=== PATIENT | male | born 1960 | race Caucasian/White ===

== ENCOUNTER 2020-05-20 10:39 | Outpatient (REF) | payer OTHER, SELFPAY ==
[2020-05-20 14:50] LABS: Alanine Aminotransferase 21 U/L (0-40); Anion Gap 13 (12-20); Aspartate Amino Transferase 18 U/L (5-37); Blood Urea Nitrogen 20 mg/dL (9-16); Calcium 9.3 mg/dL (8.4-10.2); Carbon Dioxide 28 mmol/L (22-29); Chloride 107 mmol/L (96-108); Cholesterol 186 mg/dL; Estimated Glomerular Filt Rate > 60; Glucose Fasting 86 mg/dL (60-99); HDL Cholesterol 40 mg/dL; LDL Cholesterol Calculated 116 mg/dl; Potassium 4.6 mmol/l (3.3-5.1); Sodium 143 mmol/L (135-145); Triglycerides 153 mg/dL
== END 2020-05-20 10:40 | disposition home or self-care (01) ==
LOC: HO.HMGCLDS 10:39
PROVIDERS: PCP Internal Medicine; Visit Provider Internal Medicine
DX: I25.10 Atherosclerotic heart disease of native coronary artery without angina pectoris (principal); I10 Essential (primary) hypertension; E78.2 Mixed hyperlipidemia
CPT/HCPCS: 36415; 80048; 80061; 84450; 84460

== ENCOUNTER 2020-05-21 08:50 | Outpatient (REF) | payer OTHER, SELFPAY ==
--- NOTE | 2020-05-21 08:30 | CA_ITS ---
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 The visually estimated ejection fraction is between 65-70%. - There is severe septal and severe basal asymmetric hypertrophy. - There is mild aortic valve stenosis. There is mild aortic valve regurgitation. - There is mild dilatation of the ascending aorta measuring 4.20 cm. Findings Left Ventricle Normal left ventricular cavity size. There is moderately increased left ventricular wall thickness. The left ventricular systolic function is normal. The visually estimated ejection fraction is between 65-70%. There is no evidence of regional wall motion abnormalities. Diastolic function is normal for age. There is severe septal and severe basal asymmetric hypertrophy. Right Ventricle Normal right ventricular cavity size and systolic function. Atria The left atrium is mildly dilated. The right atrium is normal in size. Aortic Valve The aortic valve was not well visualized. There is mild calcification of the aortic valve. There is mild aortic valve stenosis. The peak aortic velocity is 2.50 m/s with a calculated peak gradient of 25 mmHg. The mean gradient is 14 mmHg. The aortic valve area is 2.58 cm2. There is mild aortic valve regurgitation. Mitral Valve The mitral valve appears normal. There is trace mitral valve regurgitation. There is no mitral valve stenosis. Pulmonic Valve The pulmonic valve was not well visualized. Tricuspid Valve There is mild tricuspid valve regurgitation. The pulmonary artery systolic pressure is normal. Great Vessels There is mild dilatation of the ascending aorta measuring 4.20 cm. Venous The inferior vena cava is normal in size and collapses greater than 50% with inspiration. Pericardium/Pleural There is no evidence of pericardial effusion. Prior Study Comparison No significant change compared to prior study dated: 12/29/2018. Measurements 2D Linear Measurements IVSd: 1.70 0.6-0.9/0.6-1.0 cm LVIDd: 4.06 3.9-5.3/4.2-5.9 cm LVIDd Index: 1.62 2.4-3.2/2.2-3.1 cm/m2 LVIDs: 2.72 2.0-3.6 cm LVPWd: 1.52 0.7-1.1 cm Ao Root: 3.50 2.1-3.5 cm LA Diam: 4.50 2.7-3.8/3.0-4.0 cm LAIDs Index: 1.79 1.5-2.3 cm/m2 LV Mass: 331.66 67-162/88-224 g LV Mass Index: 132.14 43-95/49-115 g/m2 LVOT Diam: 2.20 3.0+(-)1.3 cm 2D Systolic Function EF 4C: 62.20 >55% EF 2C: 41.80 >55% Mitral Valve MV Pk E: 0.48 MV PK A: 0.49 MV Decel Time: 317.00 E/A: 1.00 E'Lateral: 8.61 E'Medial: 6.77 E/E' Med: 7.10 E/E' Lat: 5.60 PHT: 93.00 MVA PHT: 2.37 Decel Monona: 1.52 Aortic Valve AoV Pk Mitul: 2.50 AoV Mn Mitul: 1.77 AoV VTI: 0.57 AoV Pk Grad: 25.00 Aov Mn Grad: 14.00 CHERRI Cont.VTI: 2.58 LVOT LVOT Pk Mitul: 1.59 LVOT Mn Mitul: 1.17 LVOT VTI: 0.39 LVOT Pk Grad: 10.00 LVOT Mn Grad: 6.00 LVOT Diam: 2.20 LVOT Area: 3.80 Diastolic Function MV Pk E: 0.48 MV Pk A: 0.49 E/A: 1.00 E'Medial: 6.77 E/E' Med: 7.10 E' Laterial: 8.61 E/E' Lat: 5.60 Tricuspid Valve TR Pk Mitul: 2.29 TR Pk Grad: 21.00 RA Press: 3.00 RVSP: 24.00 Great Vessels Aorta Ao Root-2D: 3.50 2.0-3.7 cm Ao Asc: 4.20 2.1-3.4 cm Pulmonary Valve PV Pk Mitul: 1.18 Peak PV Grad: 6.00 Updated in Other Vendor System with Status of Final Myke Thakkar MD electronically signed on 05/22/2020 5:36:44 PM with status of Final
== END 2020-05-21 08:51 | disposition home or self-care (01) ==
LOC: HO.CT 08:50
PROVIDERS: PCP Internal Medicine; Visit Provider Internal Medicine Cardiovascular Disease
DX: I25.10 Atherosclerotic heart disease of native coronary artery without angina pectoris (principal); I35.0 Nonrheumatic aortic (valve) stenosis; I71.2 Thoracic aortic aneurysm, without rupture
CPT/HCPCS: 93306

== ENCOUNTER → 2020-06-27 12:47 | Outpatient (BNVA) | payer OTHER, SELFPAY | PROVIDERS: PCP Internal Medicine; Visit Provider Internal Medicine Cardiovascular Disease | DX: I35.0 Nonrheumatic aortic (valve) stenosis (principal); I71.2 Thoracic aortic aneurysm, without rupture; I25.10 Atherosclerotic heart disease of native coronary artery without angina pectoris; Z79.82 Long term (current) use of aspirin; Z79.899 Other long term (current) drug therapy | CPT/HCPCS: 99212 ==

== ENCOUNTER → 2021-08-12 14:43 | Outpatient (REF) | payer OTHER, SELFPAY ==
--- NOTE | 2021-08-12 14:53 | CA_ITS ---
Transthoracic Echocardiogram Patient (Last, First, Middle): Torrey Morton P Gender: Male Date of : 1960 Age: 61 Procedure Date: 08/12/2021 Procedure Type: Transthoracic Echocardiogram Location: OP Height: 182.88 cm Weight: 130.18 kg BSA: 2.48 m2 Heart Rate: bpm BP: 128 / 72 mmHg Line Pilot: STEPHANIE Referring MD: Damian Sow MD Die Sinker: Damian Sow MD Symptoms: I35.0 - Nonrheumatic aortic (valve) stenosis Study Quality: Fair ECG Rhythm: Sinus Conclusions: - 1.Normal LV systolic function with LVEF 60-65% with mild LVH and asymmetric JULIA with grade I diastolic dysfunction 2. Mild aortic stenosis is present 3. Ascending aorta is measured at 4.4 cm 4. Normal RVSP 5. No pericardial effusion Findings Left Ventricle Normal left ventricular cavity size. There is mildly increased left ventricular wall thickness. The left ventricular systolic function is normal. The visually estimated ejection fraction is between 60-65%. Spectral Doppler is indicative of an impaired relaxation filling pattern. E/E prime ratio is <8, consistent with normal filling pressures. Evidence suggests grade I (mild) diastolic dysfunction. There is severe septal asymmetric hypertrophy. Right Ventricle Normal right ventricular cavity size and systolic function. Aortic Valve There is mild calcification of the aortic valve. There is mild thickening of the aortic valve. There is mild aortic valve stenosis. The peak aortic gradient is 21 mmHg.The mean gradient is 12 mmHg. There is trace (trivial) aortic valve regurgitation. Mitral Valve There is mild anterior and posterior mitral leaflet thickening. There is trace mitral valve regurgitation. There is no mitral valve stenosis. Pulmonic Valve The pulmonic valve was not well visualized. Tricuspid Valve Normal tricuspid valve structure. There is trace tricuspid valve regurgitation. The right ventricular systolic pressure is normal. The right ventricular systolic pressure is 27 mmHg. Normal right atrial pressure. There is no evidence of pulmonary hypertension. Great Vessels The pulmonary artery was not well visualized. There is mild dilatation of the ascending aorta measuring 4.40 cm. Venous The inferior vena cava is normal in size and collapses greater than 50% with inspiration. Pericardium/Pleural There is no evidence of pericardial effusion. Prior Study Comparison No significant change compared to prior study. Measurements 2D Linear Measurements IVSd: 1.95 0.6-0.9/0.6-1.0 cm LVIDd: 4.70 3.9-5.3/4.2-5.9 cm LVIDd Index: 1.90 2.4-3.2/2.2-3.1 cm/m2 LVIDs: 3.38 2.0-3.6 cm LVPWd: 1.31 0.7-1.1 cm Ao Root: 3.50 2.1-3.5 cm LA Diam: 5.40 2.7-3.8/3.0-4.0 cm LAIDs Index: 2.18 1.5-2.3 cm/m2 LV Mass: 416.56 67-162/88-224 g LV Mass Index: 167.97 43-95/49-115 g/m2 LVOT Diam: 2.30 3.0+(-)1.3 cm Mitral Valve MV Pk E: 0.46 MV PK A: 0.48 MV Decel Time: 306.00 E/A: 1.00 E'Lateral: 8.81 E'Medial: 6.42 E/E' Med: 7.20 E/E' Lat: 5.30 PHT: 90.00 MVA PHT: 2.44 Decel Burke: 1.51 Aortic Valve AoV Pk Mitul: 2.27 AoV Mn Mitul: 1.60 AoV VTI: 0.53 AoV Pk Grad: 21.00 Aov Mn Grad: 12.00 CHERRI Cont.VTI: 2.99 LVOT LVOT Pk Mitul: 1.43 LVOT Mn Mitul: 1.13 LVOT VTI: 0.39 LVOT Pk Grad: 8.00 LVOT Mn Grad: 6.00 LVOT Diam: 2.30 LVOT Area: 4.15 Diastolic Function MV Pk E: 0.46 MV Pk A: 0.48 E/A: 1.00 E'Medial: 6.42 E/E' Med: 7.20 E' Laterial: 8.81 E/E' Lat: 5.30 Tricuspid Valve TR Pk Mitul: 2.44 TR Pk Grad: 24.00 RA Press: 3.00 RVSP: 27.00 Great Vessels Aorta Ao Root-2D: 3.50 2.0-3.7 cm Ao Asc: 4.40 2.1-3.4 cm Ao Arch: 3.80 Updated in Other Vendor System with Status of Final Damian Sow MD electronically signed on 08/12/2021 4:53:51 PM with status of Final
== END ==
LOC: HO.CARD 14:43
PROVIDERS: Visit Provider Internal Medicine Cardiovascular Disease
DX: I35.0 Nonrheumatic aortic (valve) stenosis (principal); I71.2 Thoracic aortic aneurysm, without rupture; I10 Essential (primary) hypertension
CPT/HCPCS: 93306

== ENCOUNTER → 2021-09-22 14:24 | Outpatient (BNVA) | payer OTHER, SELFPAY | PROVIDERS: PCP Internal Medicine; Referring Provider Internal Medicine; Visit Provider Nurse Practitioner Family | DX: Z12.11 Encounter for screening for malignant neoplasm of colon (principal); D12.6 Benign neoplasm of colon, unspecified; I35.0 Nonrheumatic aortic (valve) stenosis | CPT/HCPCS: 99202 ==

== ENCOUNTER 2021-09-30 13:06 | Outpatient (REF) | payer OTHER, SELFPAY ==
--- NOTE | ~2021-09-30 | CT_ITS ---
EXAMINATION: CT CHEST SCREENING CLINICAL INFORMATION: Nicotine dependence. Smoker for 40 years, quit smoking 6 years ago. COMPARISON: None. TECHNIQUE: Multidetector volumetric CT imaging of the chest is performed without contrast using low dose technique. Additional 2D coronal and sagittal reformatted images and axial 3D maximum intensity projection (MIP) images are generated on the CT workstation. This CT examination was performed using dose optimization techniques as appropriate, variously including the following: *Automated exposure control *Adjustment of mA and/or kV according to patient size (this includes techniques or standardized protocols for targeted exams where dose is matched to indication/reason for exam; i.e. extremities or head) *Use of iterative reconstruction technique DLP: 108 mGy-cm FINDINGS: LUNGS: The lungs are well expanded and clear of acute pneumonic process. Small bilateral pulmonary nodules are stable. A triangular nodule pleural-based measuring 4 mm is stable on axial image 239/6, 2 mm nodule right middle lobe adjacent to the major fissure axial image 315/6 and 2 mm nodule along the right major fissure axial image 327/6 are stable. MEDIASTINUM: The thyroid lobes are symmetrical and normal. Central trachea and bronchi are widely patent. Heart size and the great vessels are normal caliber. No abnormal size mediastinal or hilar lymph node seen. There are coronary artery calcifications present. PLEURA: There is no pleural effusion. No pleural mass or thickening. AXILLA: No lymphadenopathy. UPPER ABDOMEN: Visualized liver, spleen, pancreas and bilateral adrenal glands are unremarkable. No radiopaque gallstone seen. OSSEOUS STRUCTURES: No lytic or sclerotic process seen. CT/CT lung screening IMPRESSION: Bilateral pulmonary nodules including the triangular nodule along the minor fissure and 2 mm nodule in the right middle lobe and major fissure are stable. Moderate coronary artery calcifications. ASSESSMENT: Lung-RADS category 2: Benign. RECOMMENDATION: Low-dose annual CT chest.
== END 2021-09-30 13:07 | disposition home or self-care (01) ==
LOC: HO.CT 13:06
PROVIDERS: PCP Internal Medicine; Visit Provider Physician Assistant Medical
DX: Z87.891 Personal history of nicotine dependence (principal)
CPT/HCPCS: 71271

== ENCOUNTER → 2021-10-17 09:46 | Outpatient (BNVA) | payer OTHER, SELFPAY | PROVIDERS: PCP Internal Medicine; Referring Provider Internal Medicine; Visit Provider Internal Medicine Cardiovascular Disease | DX: Z01.810 Encounter for preprocedural cardiovascular examination (principal); I25.10 Atherosclerotic heart disease of native coronary artery without angina pectoris; I71.2 Thoracic aortic aneurysm, without rupture; I35.0 Nonrheumatic aortic (valve) stenosis | CPT/HCPCS: 93005; 99212 ==

== ENCOUNTER → 2022-01-26 10:44 | Day surgery (SDC) | payer OTHER, SELFPAY ==
[2022-01-19 20:25] VITALS: BMI 40.9
--- NOTE | 2022-01-23 08:44 | HO.ANESPROP2 ---
Documented by User: Lidya Gardner NP 01/23/22 08:58 HPI - Anesthesia Eval Consult details Narrative: 61yo M for Colonoscopy [facility] Active Problems Active Problems: All Active Problems (Updated 01/19/22 @ 20:24 by Mayra Hong RN) Mixed hyperlipidemia (Acute) Allergic rhinitis (Acute) Vitamin D deficiency (Acute) Acquired deformity of toenail (Acute) Pulmonary nodules/lesions, multiple (Acute) Tubular adenoma of colon (Acute) PTSD (post-traumatic stress disorder) (Acute) Aortic stenosis (Acute) Thoracic aortic aneurysm (Acute) Coronary arteriosclerosis (Acute) HTN (hypertension) (Acute) Past Medical History Medical History (Updated 01/19/22 @ 20:24 by Mayra Hong RN) Acquired deformity of toenail Aortic stenosis Coronary arteriosclerosis History of alcohol abuse History of cocaine use HTN (hypertension) Hx of myocardial infarction Hyperlipidemia PTSD (post-traumatic stress disorder) Pulmonary nodules/lesions, multiple Thoracic aortic aneurysm Tubular adenoma of colon Family History Family History Father Lung cancer CVD (cardiovascular disease) Mother CVD (cardiovascular disease) Surgical History Surgical History History of colonoscopy History of eye surgery Social History Social History Housing: House Alcohol intake: former Patient Tobacco Use Status: Former Tobacco user Quit Date: 2011 Years Smoked: 40 yrs e-Cigarette/Vaping Use: Never Used Use of substances other than those prescribed or required for medical reasons: Yes Substance Use Type Other:: PMH COCAINE AND HEAVY ETOH USE-REMISSION Are you DNR?: No Advance Directives: No Advance Directives Information Provided: No Advance Directives on File: No Recently lost weight without trying: No Nutrition Risks: No Nutritional Risk Current occupational status: retired Meds Allergies Allergy/AdvReac Type Severity Reaction Status Date / Time codeine [Codeine] Allergy Intermediate RASH, Verified 10/30/21 00:52 rash, oral itching morphine [Morphine] Allergy Intermediate N/V Verified 10/30/21 00:52 HALLUCINATIONS, hallucinations lisinopril AdvReac Unknown cough Verified 10/30/21 00:52 Exam Exam Date and Time: January 23, 2022 0844 Height,Weight and Vital Signs: Height 6 ft Weight 136.985 kg Narrative Narrative: EKG 10/2021 normal sinus rhythm with moderate voltage criteria for LVH otherwise no significant ischemic changes ECHO 07/2021 Conclusions: - 1.Normal LV systolic function with LVEF 60-65% with mild LVH ? and asymmetric JULIA with grade I diastolic dysfunction? 2. Mild aortic stenosis is present ? 3. Ascending aorta is measured at 4.4 cm ? 4. Normal RVSP ? 5. No pericardial effusion ?? Assessment and Plan Assessment Anesthesia Assessment: Chart Reviewed Documented by User: Jerry Todd MD 01/26/22 11:30 [facility] Past Medical History Medical History (Updated 01/19/22 @ 20:24 by Mayra Hong RN) Acquired deformity of toenail Aortic stenosis Coronary arteriosclerosis History of alcohol abuse History of cocaine use HTN (hypertension) Hx of myocardial infarction Hyperlipidemia PTSD (post-traumatic stress disorder) Pulmonary nodules/lesions, multiple Thoracic aortic aneurysm Tubular adenoma of colon Family History Family History Father Lung cancer CVD (cardiovascular disease) Mother CVD (cardiovascular disease) Family history of problems with anesthesia: No Surgical History Surgical History History of colonoscopy History of eye surgery History of Problems with Anesthesia: No Social History Social History Housing: House Alcohol intake: former Patient Tobacco Use Status: Former Tobacco user Quit Date: 2011 Years Smoked: 40 yrs e-Cigarette/Vaping Use: Never Used Use of substances other than those prescribed or required for medical reasons: Yes Substance Use Type Other:: PMH COCAINE AND HEAVY ETOH USE-REMISSION Are you DNR?: No Advance Directives: No Advance Directives Information Provided: No Advance Directives on File: No Recently lost weight without trying: No Nutrition Risks: No Nutritional Risk Current occupational status: retired Meds Allergies Allergy/AdvReac Type Severity Reaction Status Date / Time codeine [Codeine] Allergy Intermediate RASH, Verified 10/30/21 00:52 rash, oral itching morphine [Morphine] Allergy Intermediate N/V Verified 10/30/21 00:52 HALLUCINATIONS, hallucinations lisinopril AdvReac Unknown cough Verified 10/30/21 00:52 Exam Airway Mallampati Class: III TM Dist: >3cm Neck ROM: Full Loose/Missing/Broken Teeth: Yes (many broken all around the entire mouth but none loose as per patient) Heart: [id number] Lungs: cta b/l Assessment and Plan Assessment Anesthesia Assessment: Anesthesia Plan Discussed Final Anesthetic Review Family History of Problems with Anesthesia: No History of Problems with Anesthesia: No NPO: Yes ASA Class: III Final Preanesthetic Review: No Changes in Pt Med Stat, Meds/Allgs Chart Reviewed, Consent Obtained/Reviewed and Anes Risks/Benef Reviewed Patient Risk: Intermediate Procedure Risk: Intermediate Assessment/Block/Sedation in SS: Assess/Block/Sedation-SS Anesthetic Plan Anesthetic Plan: MAC: and Agree w/ Assess. and Plan Disposition: Standard PACU
--- NOTE | 2022-01-26 10:25 | MHC.SHP ---
Pre-Procedural Eval Section A Date of Service: 01/26/22 Section B Chief Complaint: Benign neoplasm of colon, Relevant Family History (Specify if Yes): No Relevant Social History: Tobacco Use (former smoker) Present Medications: see Short Stay Collaborative assessment Medical History: Significant History (Acquired deformity of toenail Aortic stenosis Coronary arteriosclerosis History of alcohol abuse History of cocaine use HTN (hypertension) Hx of myocardial infarction PTSD (post-traumatic stress disorder) Pulmonary nodules/lesions, multiple Thoracic aortic aneurysm Tubular adenoma of colon) History of Previous Operations: Relevant previous surgery/procedure and date(s) (History of colonoscopy History of eye surgery) Allergies: Allergies Allergy/AdvReac Type Severity Reaction Status Date / Time codeine [Codeine] Allergy Intermediate RASH, Verified 10/30/21 00:52 rash, oral itching morphine [Morphine] Allergy Intermediate N/V Verified 10/30/21 00:52 HALLUCINATIONS, hallucinations lisinopril AdvReac Unknown cough Verified 10/30/21 00:52 Plan Diagnosis/Plan: Change (procedure was cancelled since urine drug screen was positive for cocaine) I have reviewed the history and physical and performed a pertinent physical examination on my patient. No changes have occurred unless specified.
[2022-01-26] MEDS: Lactated Ringers 1,000 ML 100 ML IVCONT (11:34)
[2022-01-26 11:39] LABS: Amphetamine Screen Urine Not Detected (Not Detect); Barbiturates, Urine Not Detected (Not Detect); Benzodiazepines Screen Urine Not Detected (Not Detect); Cannabinoid Screen Urine Not Detected (Not Detect); Cocaine Screen Urine POSITIVE (Not Detect); Fentanyl, urine Not Detected (Not Detect); Opiate Screen Urine Not Detected (Not Detect); Phencyclidine Screen Urine Not Detected (Not Detect)
--- NOTE | 2022-01-26 11:53 | PC.NURSE ---
patient's utox positive for cocaine, case cancelled per anesthesia
== END ==
PROVIDERS: Nurse Practitioner; PCP Internal Medicine; Visit Provider Internal Medicine Gastroenterology
DX: Z12.11 Encounter for screening for malignant neoplasm of colon (principal); Z53.09 Procedure and treatment not carried out because of other contraindication; Z86.010 Personal history of colon polyps
CPT/HCPCS: 80307

== ENCOUNTER 2022-02-23 10:13 | Outpatient (REF) | payer OTHER, SELFPAY ==
[2022-02-23 11:45] LABS: Alanine Aminotransferase 31 U/L (0-40); Anion Gap 12 (12-20); Aspartate Amino Transferase 22 U/L (5-37); Blood Urea Nitrogen 13 mg/dL (9-16); Calcium 9.2 mg/dL (8.4-10.2); Carbon Dioxide 26 mmol/L (22-29); Chloride 106 mmol/L (96-108); Cholesterol 164 mg/dL; Estimated Glomerular Filt Rate > 60; Glucose Fasting 93 mg/dL (60-99); HDL Cholesterol 41 mg/dL; LDL Cholesterol Calculated 100 mg/dl; Potassium 4.1 mmol/L (3.3-5.1); Sodium 140 mmol/L (135-145); Triglycerides 115 mg/dL
[2022-02-23 12:09] LABS: PSA,Total (Free>4and<10) 0.72 ng/mL (0.00-4.00); Vitamin D 25-OH Total 39.8 ng/mL (>30)
== END 2022-02-23 10:14 | disposition home or self-care (01) ==
LOC: HO.HMGCLDS 10:13
PROVIDERS: PCP Internal Medicine; Visit Provider Internal Medicine
DX: Z12.5 Encounter for screening for malignant neoplasm of prostate (principal); I25.10 Atherosclerotic heart disease of native coronary artery without angina pectoris; I35.0 Nonrheumatic aortic (valve) stenosis; I10 Essential (primary) hypertension; F43.10 Post-traumatic stress disorder, unspecified; E55.9 Vitamin D deficiency, unspecified
CPT/HCPCS: 36415; 80048; 80061; 82306; 84153; 84450; 84460

== ENCOUNTER → 2022-06-12 08:12 | Outpatient (REF) | payer OTHER, SELFPAY ==
--- NOTE | 2022-06-12 08:16 | CA_ITS ---
Transthoracic Echocardiogram Patient (Last, First, Middle): Torrey Morton P Gender: Male Date of : 1960 Age: 62 Procedure Date: 06/12/2022 Procedure Type: Transthoracic Echocardiogram Location: OP Height: 182.88 cm Weight: 131.54 kg BSA: 2.49 m2 Heart Rate: bpm BP: 120 / 80 mmHg Director Of Corporate Sponsorships: TO Referring MD: Damian Sow MD Bore Miner Operator: Damian Sow MD Symptoms: I35.0 - Nonrheumatic aortic (valve) stenosis Study Quality: Technically Difficult/Contrast ECG Rhythm: Sinus Conclusions: - 1. Normal LV systolic function with mild LVH with moderate asymmetric septal hypertrophy with possible subaortic obstruction with impaired relaxation filling pattern 2. Mild aortic stenosis 3. Mildly dilated ascending aorta at 4.4 cm 4. Normal RV systolic pressure 5. No gross pericardial effusion Findings Procedure Information Contrast agent, definity, is being given per protocol without apparent complications. Left Ventricle Normal left ventricular size and systolic function. There is mildly increased left ventricular wall thickness. The visually estimated ejection fraction is between 60-65%. Spectral Doppler is indicative of an impaired relaxation filling pattern. E/E prime ratio is between 8 and 15 consistent with indeterminate filling pressures. There is moderate septal asymmetric hypertrophy. Right Ventricle Normal right ventricular cavity size and systolic function. Atria The left atrium is likely dilated. Interatrial shunt cannot be excluded. The right atrium was not well visualized. Aortic Valve There is moderate calcification of the aortic valve. There is mild aortic valve stenosis. The peak aortic gradient is 28 mmHg.The mean gradient is 16 mmHg. There is no aortic valve regurgitation. there is also increased gradient across LVOT suggestive of possible obstruction at the level of LVOT. Mitral Valve The mitral valve was not well visualized. There is trace mitral valve regurgitation. There is no mitral valve stenosis. Pulmonic Valve The pulmonic valve was not well visualized. Tricuspid Valve The tricuspid valve was not well visualized. There is trace tricuspid valve regurgitation. The right ventricular systolic pressure is normal. The right ventricular systolic pressure is 21 mmHg. Normal right atrial pressure. Great Vessels The pulmonary artery was not well visualized. There is mild dilatation of the ascending aorta measuring 4.40 cm. Venous The inferior vena cava is normal in size and collapses greater than 50% with inspiration. Pericardium/Pleural There is no evidence of pericardial effusion. Prior Study Comparison No significant change compared to prior study dated: 08/12/2021. Measurements 2D Linear Measurements IVSd: 1.38 0.6-0.9/0.6-1.0 cm LVIDd: 5.12 3.9-5.3/4.2-5.9 cm LVIDd Index: 2.06 2.4-3.2/2.2-3.1 cm/m2 LVIDs: 3.19 2.0-3.6 cm LVPWd: 1.35 0.7-1.1 cm LA Diam: 3.80 2.7-3.8/3.0-4.0 cm LAIDs Index: 1.53 1.5-2.3 cm/m2 LV Mass: 363.50 67-162/88-224 g LV Mass Index: 145.98 43-95/49-115 g/m2 LVOT Diam: 2.30 3.0+(-)1.3 cm 2D Systolic Function EF 4C: 61.40 >55% EF 2C: 58.50 >55% EF BiP: 60.00 >55% Mitral Valve MV Pk E: 0.48 MV PK A: 0.53 MV Decel Time: 318.00 E/A: 0.90 E'Lateral: 8.59 E'Medial: 6.96 E/E' Med: 6.80 E/E' Lat: 5.50 PHT: 93.00 MVA PHT: 2.37 Decel Sheridan: 1.50 Aortic Valve AoV Pk Imtul: 2.65 AoV Mn Mitul: 1.91 AoV VTI: 0.56 AoV Pk Grad: 28.00 Aov Mn Grad: 16.00 CHERRI Cont.VTI: 2.76 LVOT LVOT Pk Mitul: 1.50 LVOT Mn Mitul: 1.10 LVOT VTI: 0.37 LVOT Pk Grad: 9.00 LVOT Mn Grad: 6.00 LVOT Diam: 2.30 LVOT Area: 4.15 Diastolic Function MV Pk E: 0.48 MV Pk A: 0.53 E/A: 0.90 E'Medial: 6.96 E/E' Med: 6.80 E' Laterial: 8.59 E/E' Lat: 5.50 Right Ventricle TAPSE (mm): 20.30 TVS' Mitul: 11.20 Tricuspid Valve TR Pk Mitul: 2.10 TR Pk Grad: 18.00 RA Press: 3.00 RVSP: 21.00 Great Vessels Aorta Sinus of Valsalva: 3.83 2.0-3.[address] [place]: 2.64 1.7-3.4 cm Ao Asc: 4.40 2.1-3.4 cm Updated in Other Vendor System with Status of Final Damian Sow MD electronically signed on 06/13/2022 12:21:39 PM with status of Final
== END ==
LOC: HO.CARD 08:12
PROVIDERS: PCP Internal Medicine; Visit Provider Internal Medicine Cardiovascular Disease
DX: I35.0 Nonrheumatic aortic (valve) stenosis (principal)
CPT/HCPCS: 93306; Q9957

== ENCOUNTER 2023-02-26 07:49 | Outpatient (REF) | payer OTHER, SELFPAY ==
--- NOTE | ~2023-02-26 | CT_ITS ---
EXAMINATION: CT CHEST SCREENING CLINICAL INFORMATION: Personal history of nicotine dependence COMPARISON: Previous chest CT September 2021 TECHNIQUE: Multidetector volumetric CT imaging of the chest is performed without contrast using low dose technique. Additional 2D coronal and sagittal reformatted images and axial 3D maximum intensity projection (MIP) images are generated on the CT workstation. This CT examination was performed using dose optimization techniques as appropriate, variously including the following: *Automated exposure control *Adjustment of mA and/or kV according to patient size (this includes techniques or standardized protocols for targeted exams where dose is matched to indication/reason for exam; i.e. extremities or head) *Use of iterative reconstruction technique DLP: 106 mGy-cm FINDINGS: LUNGS: The small pulmonary nodules are stable. Largest pulmonary nodule is a 4 mm triangular-shaped peripheral or subpleural nodule adjacent to the minor fissure probably representing a subpleural lymph node. No new pulmonary nodules. Mild scarring or subsegmental atelectasis in the inferior segment of the lingula. MEDIASTINUM: The mediastinum is normal. CORONARY ARTERY CALCIFICATION: Moderate coronary artery calcification. There is also aortic valve calcification. PLEURA: There is no pleural effusion. No pleural mass or thickening. AXILLA: No lymphadenopathy. UPPER ABDOMEN: Unremarkable OSSEOUS STRUCTURES: Mild degenerative changes of the spine. CT/CT lung screening IMPRESSION: Stable small pulmonary nodules. Coronary artery and aortic valve calcification. ASSESSMENT: Lung-RADS category 2: Benign RECOMMENDATION: Annual low-dose chest CT follow-up recommended.
== END 2023-02-26 07:50 | disposition home or self-care (01) ==
LOC: HO.CT 07:49
PROVIDERS: PCP Internal Medicine; Visit Provider Physician Assistant Medical
DX: Z12.2 Encounter for screening for malignant neoplasm of respiratory organs (principal); Z87.891 Personal history of nicotine dependence
CPT/HCPCS: 71271

== ENCOUNTER 2023-04-20 10:43 | Outpatient (AMB) | payer OTHER, SELFPAY ==
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
[2023-04-20 11:23] VITALS: BP 108/72; PULSE 59; O2SAT 96; BMI 40.7
== END 2023-04-20 12:03 | disposition home or self-care (01) ==
PROVIDERS: Visit Provider Internal Medicine
DX: Z23 Encounter for immunization (principal)
CPT/HCPCS: 90471; 90715; 99213

== ENCOUNTER 2023-07-21 09:10 | Outpatient (REF) | payer OTHER, SELFPAY ==
[2023-07-21 11:19] LABS: MANUAL DIFF FLAG NO
[2023-07-21 11:35] LABS: Basophils Absolute Auto 0.1 X10*3/uL (0.0-0.2); Basophils Percent Auto 0.7 % (0-2); Eosinophils Absolute Auto 0.2 X10*3/uL (0.0-0.4); Eosinophils Percent Auto 2.7 % (0-4); Hematocrit 47.5 % (42.0-52.0); Hemoglobin 15.5 g/dl (14.0-18.0); Imm Gran Abs Auto 0.02 X10*3/uL (0.00-0.03); Imm Gran Pct Auto 0.2 % (0.0-0.4); Lymphocytes Absolute Auto 2.2 X10*3/uL (1.2-4.9); Mean Corpuscular HGB Conc 32.6 g/dl (31.0-36.0); Mean Corpuscular Hemoglobin 30.2 pg (27.0-33.0); Mean Corpuscular Volume 92.4 fL (80.0-98.0); Mean Platelet Volume 11.7 fL (9.4-12.4); Monocytes Absolute Auto 0.6 X10*3/uL (0.1-1.2); Monocytes Percent Auto 6.3 % (2-11); Neutrophils Absolute Auto 5.7 x10*3/uL (2.0-8.3); Neutrophils Percent Auto 65.1 % (45-73); Platelet Count 227 X10*3/uL (160-400); Red Blood Count 5.14 X10*6/uL (4.60-5.80); Red Cell Distribution Width 13.6 % (11.0-16.0); White Blood Count 8.7 X10*3/uL (4.8-10.8)
[2023-07-21 12:02] LABS: Alanine Aminotransferase 26 U/L (0-40); Anion Gap 10 (12-20); Aspartate Amino Transferase 19 U/L (5-37); Blood Urea Nitrogen 18 mg/dL (9-16); Calcium 9.3 mg/dL (8.4-10.2); Carbon Dioxide 28 mmol/L (22-29); Chloride 108 mmol/L (96-108); Cholesterol 172 mg/dL (<200); Estimated Glomerular Filt Rate > 60; Glucose Fasting 103 mg/dL (60-99); HDL Cholesterol 38 mg/dL (>40); LDL Cholesterol Calculated 104 mg/dL (<100); Potassium 3.9 mmol/L (3.3-5.1); Sodium 142 mmol/L (135-145); Triglycerides 152 mg/dL (<150)
[2023-07-21 12:20] LABS: Vitamin D 25-OH Total 90.2 ng/mL (>30)
== END 2023-07-21 09:11 | disposition home or self-care (01) ==
LOC: HO.HMGCLDS 09:10
PROVIDERS: PCP Internal Medicine; Visit Provider Internal Medicine
DX: Z00.01 Encounter for general adult medical examination with abnormal findings (principal); E78.2 Mixed hyperlipidemia; E55.9 Vitamin D deficiency, unspecified; F43.10 Post-traumatic stress disorder, unspecified; D12.6 Benign neoplasm of colon, unspecified; I35.0 Nonrheumatic aortic (valve) stenosis; I71.20 Thoracic aortic aneurysm, without rupture, unspecified; I25.10 Atherosclerotic heart disease of native coronary artery without angina pectoris; I10 Essential (primary) hypertension
CPT/HCPCS: 36415; 80048; 80061; 82306; 84450; 84460; 85025

== ENCOUNTER 2023-07-21 11:19 | Outpatient (AMB) | payer OTHER, SELFPAY ==
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
[2023-07-21 12:23] VITALS: BP 130/90; PULSE 61; O2SAT 97; BMI 41.5
== END 2023-07-21 13:15 | disposition home or self-care (01) ==
PROVIDERS: PCP Internal Medicine; Visit Provider Internal Medicine
DX: Z23 Encounter for immunization (principal)
CPT/HCPCS: 90471; 90686; 99214

== ENCOUNTER 2024-01-05 09:07 | Outpatient (REF) | payer OTHER, SELFPAY ==
[2024-01-05 11:23] LABS: Alanine Aminotransferase 22 U/L (0-40); Anion Gap 13 (12-20); Aspartate Amino Transferase 18 U/L (5-37); Blood Urea Nitrogen 17 mg/dL (9-16); Calcium 9.9 mg/dL (8.4-10.2); Carbon Dioxide 27 mmol/L (22-29); Chloride 109 mmol/L (96-108); Cholesterol 143 mg/dL (<200); Estimated Glomerular Filt Rate > 60; Glucose Fasting 86 mg/dL (60-99); HDL Cholesterol 42 mg/dL (>40); LDL Cholesterol Calculated 71 mg/dL (<100); Potassium 3.8 mmol/L (3.3-5.1); Sodium 145 mmol/L (135-145); Triglycerides 152 mg/dL (<150)
[2024-01-05 11:40] LABS: Vitamin D 25-OH Total 47.5 ng/mL (>30)
== END 2024-01-05 09:08 | disposition home or self-care (01) ==
LOC: HO.HMGCLDS 09:07
PROVIDERS: PCP Internal Medicine; Visit Provider Internal Medicine
DX: I25.10 Atherosclerotic heart disease of native coronary artery without angina pectoris (principal); I71.20 Thoracic aortic aneurysm, without rupture, unspecified; I10 Essential (primary) hypertension; E78.00 Pure hypercholesterolemia, unspecified; E55.9 Vitamin D deficiency, unspecified
CPT/HCPCS: 36415; 80048; 80061; 82306; 84450; 84460

== ENCOUNTER 2024-01-07 10:43 | Outpatient (AMB) | payer OTHER, SELFPAY ==
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
[2024-01-07 10:56] VITALS: BP 120/64; PULSE 70; O2SAT 94; BMI 40.3
== END 2024-01-07 16:10 | disposition home or self-care (01) ==
PROVIDERS: PCP Internal Medicine; Visit Provider Nurse Practitioner Primary Care
DX: I10 Essential (primary) hypertension (principal); E55.9 Vitamin D deficiency, unspecified; E78.00 Pure hypercholesterolemia, unspecified
CPT/HCPCS: 99213

== ENCOUNTER 2024-03-20 09:00 | Outpatient (AMB) | payer OTHER, SELFPAY ==
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
[2024-03-20 09:57] VITALS: BP 108/78; PULSE 80; TEMP 36.9; O2SAT 95; BMI 39.2
== END 2024-03-20 10:33 | disposition home or self-care (01) ==
PROVIDERS: PCP Internal Medicine; Visit Provider Physician Assistant
DX: T22.212A Burn of second degree of left forearm, initial encounter (principal)
CPT/HCPCS: 99213

== ENCOUNTER 2024-05-17 08:25 | Outpatient (REF) | payer OTHER, SELFPAY ==
--- NOTE | ~2024-05-17 | CT_ITS ---
EXAMINATION: CT LOW-DOSE SCREENING CHEST WITHOUT CONTRAST CLINICAL INFORMATION: Personal history of nicotine dependence. The patient has a 40 pack-year history of smoking, having quit 12 years ago. COMPARISON: Multiple prior CT scans of the chest, the most recent of which is dated 02/26/2023 and the most remote of which is dated 05/18/2017. TECHNIQUE: Multidetector volumetric CT imaging of the chest is performed on a Siemens SOMATOM Definition scanner without contrast using low dose technique. Additional 2D coronal and sagittal reformatted images and axial 3D maximum intensity projection (MIP) images are generated on the CT workstation. This CT examination was performed using dose optimization techniques as appropriate, variously including the following: *Automated exposure control *Adjustment of mA and/or kV according to patient size (this includes techniques or standardized protocols for targeted exams where dose is matched to indication/reason for exam; i.e. extremities or head) *Use of iterative reconstruction technique TOTAL EXAM DLP: 91 mGy-cm. CTDIvol: 2.64 mGy. FINDINGS: PULMONARY NODULES: Multiple pulmonary nodules are seen and unchanged, the largest measuring 4 mm and triangular shape likely a perifissural lymph node (5:301 compare prior 5:325). Blas images of all nodules have been saved. There is no new, increasing sized or suspicious nodule. LUNGS: Lungs bilaterally symmetrically expanded. There is moderate emphysema along with a saber-sheath trachea. No effusion or pneumothorax. Central airways patent. MEDIASTINUM: No mediastinal, hilar or axillary adenopathy or free fluid collection. CORONARY ARTERY CALCIFICATION: Extensive. THYROID GLAND: Unremarkable to the extent seen. CARDIOVASCULAR STRUCTURES: Aortic and heart size normal. No pericardial effusion. CHEST WALL/AXILLA: Unremarkable. UPPER ABDOMEN: There is new hepatic steatosis. The spleen is enlarged at 14 cm in greatest transverse dimension. OSSEOUS STRUCTURES: No suspicious focal findings. CT/CT lung screening IMPRESSION: No finding seen suspicious for malignancy. ASSESSMENT: 1. Lung-RADS Category 2: Benign appearance or behavior of nodules. N/A 2. Lung-RADS Category S: Negative. There are no clinically significant or potentially clinically significant findings not related to the lungs requiring urgent additional evaluation. RECOMMENDATION: Continued routine annual low-dose CT lung screening in 1 year is recommended. An order for CT CHEST LOW DOSE CANCER SCREENING ([id number]) can be placed. Electronically signed by: Farooq Brown MD 07/02/2024 11:15 AM [facility]
== END 2024-05-17 08:26 | disposition home or self-care (01) ==
LOC: HO.CT 08:25
PROVIDERS: PCP Internal Medicine; Visit Provider Physician Assistant Medical
DX: Z12.2 Encounter for screening for malignant neoplasm of respiratory organs (principal); Z87.891 Personal history of nicotine dependence
CPT/HCPCS: 71271

== ENCOUNTER 2024-06-27 09:57 | Outpatient (AMB) | payer OTHER, SELFPAY ==
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
[2024-06-27 10:01] VITALS: BP 130/80; PULSE 91; O2SAT 99; BMI 41.0
== END 2024-06-27 10:36 | disposition home or self-care (01) ==
PROVIDERS: PCP Internal Medicine; Visit Provider Internal Medicine
DX: D12.6 Benign neoplasm of colon, unspecified (principal); E78.2 Mixed hyperlipidemia; I10 Essential (primary) hypertension; F43.10 Post-traumatic stress disorder, unspecified; Z23 Encounter for immunization

== ENCOUNTER → 2024-06-27 09:57 | Outpatient (BNVA) | payer OTHER, SELFPAY | PROVIDERS: PCP Internal Medicine; Visit Provider Internal Medicine | DX: Z23 Encounter for immunization (principal); D12.6 Benign neoplasm of colon, unspecified; E78.2 Mixed hyperlipidemia; I10 Essential (primary) hypertension; F43.10 Post-traumatic stress disorder, unspecified | CPT/HCPCS: 90471; 90656; 96127; 99212 ==

== ENCOUNTER → 2024-10-18 09:38 | Outpatient (BNVA) | payer SELFPAY | PROVIDERS: PCP Internal Medicine; Visit Provider Internal Medicine ==